=== PATIENT | male | born 1940 | race Caucasian/White ===

== ENCOUNTER 2016-07-30 04:36 | Emergency (ER) | payer OTHER ==
[~2016-07-30 04:36] MED LIST: CYCL5TAB PO; TRAM50 PO; Z.0.NO CURRENT MEDS
[2016-07-30] MEDS ORDERED: SODIUM CHLOR 0.9% 1000 ML INJ 1,000 ML IV SCH (04:50)
[2016-07-30] MEDS ORDERED: VITACAP7 PO (04:56)
[2016-07-30] MEDS ORDERED: [UNRECOGNIZED DRUG - CODE] (04:56)
--- NOTE | 2016-07-30 04:57 | PD ---
HPI Chief Complaint: Abdominal Pain Time Seen by Provider: 04:50 Travel History International Travel<30 days: No Contact w/Intl Traveler<30days: No Traveled to known affect area: No History of Present Illness HPI The patient is a 75-year-old male who presents to the emergency department via EMS for abdominal pain. The patient states he developed abdominal pain approximate 10 hours prior to arrival, just prior to eating dinner. The pain was located in epigastrium, just above the umbilicus, nonradiating, and sharp to crampy. The patient then ate dinner which exacerbated his pain. He does note nausea with an episode of vomiting, denies any diarrhea. The patient does have a history of previous left inguinal hernia , denies any previous abdominal surgeries. He denies any history pancreatitis, nephrolithiasis, or biliary colic. The patient does drink wine, approximately one glass per night. The patient denies any fever, chills, sweats, chest pain, or shortness of breath. The patient's primary physician is Dr. Johnson. The patient's last bowel movement was at 11 AM yesterday, however, since 11 AM he said no bowel movement or passing of flatus. PFSH Past Medical History Asthma: No COPD: No Diminished Hearing: No Endocrine: No Inguinal Hernia: Yes (Left) Respiratory: No Past Surgical History Other Surgery: Yes (Maximo knee arthroscopy, left inguinal hernia, Hemorrhoidectomy) Social History Alcohol Use: Yes (Occasional. 2 night ago last use.) Tobacco Use: No Substance Use: No Allergies-Medications (Allergen,Severity, Reaction): Coded Allergies: No Known Allergies (Verified , 07/30/16) Reported Meds & Prescriptions Reported Meds & Active Scripts Active Reported Uhljkcvb-Wrmjuppht-Tqhy 200-5-25 Mcg-Mg-Mg Tab B Complex (B-Complex Vitamins) 1 Cap 1 Cap PO DAILY Review of Systems Except as stated in HPI: all other systems reviewed are Neg General / Constitutional: No: Fever, Chills Cardiovascular: No: Chest Pain or Discomfort Respiratory: No: Shortness of Breath Gastrointestinal: Positive: Nausea, Vomiting, Abdominal Pain, No: Diarrhea Genitourinary: No: Dysuria Skin: No Rash Physical Exam Narrative GENERAL: Awake, alert, pleasant 75-year-old male who appears his stated age and is in no acute respiratory distress. SKIN: Focused skin assessment warm/dry. HEAD: Atraumatic. Normocephalic. EYES: Pupils equal and round. No scleral icterus. No injection or drainage. ENT: No nasal bleeding or discharge. Mucous membranes pink and moist. NECK: Trachea midline. No JVD. CARDIOVASCULAR: Regular rate and rhythm. No murmur appreciated. RESPIRATORY: No accessory muscle use. Clear to auscultation. Breath sounds equal bilaterally. GASTROINTESTINAL: Abdomen soft, tender palpation epigastrium. Negative Leon' s. Negative McBurney's. Well-healed thin transverse scar in the epigastrium. MUSCULOSKELETAL: No obvious deformities. No clubbing. No cyanosis. No edema. NEUROLOGICAL: Awake and alert. No obvious cranial nerve deficits. Motor grossly within normal limits. Normal speech. PSYCHIATRIC: Appropriate mood and affect; insight and judgment normal. Data Data Last Documented VS Vital Signs Date Time Temp Pulse Resp B/P Pulse Ox O2 Delivery O2 Flow Rate FiO2 07/30/16 05:09 98.3 109 20 114/70 96 Room Air Orders Complete Blood Count With Diff (07/30/16 04:50) Comprehensive Metabolic Panel (07/30/16 04:50) Lipase (07/30/16 04:50) Lactic Acid (07/30/16 04:50) Urinalysis - C+S If Indicated (07/30/16 04:50) Ct Abd/Pel W/O Iv Contrast (07/30/16 04:50) Iv Access Insert/Monitor (07/30/16 04:50) Ecg Monitoring (07/30/16 04:50) Oximetry (07/30/16 04:50) Morphine Inj (Morphine Inj) (07/30/16 05:00) Ondansetron Inj (Zofran Inj) (07/30/16 05:00) Sodium Chlor 0.9% 1000 Ml Inj (Ns 1000 M (07/30/16 04:50) Sodium Chloride 0.9% Flush (Ns Flush) (07/30/16 05:00) Electrocardiogram (07/30/16 04:50) Consult General Surgery (07/30/16 ) Ampicillin-Sulbactam Inj (Unasyn Inj) (07/30/16 05:45) Ns + Kcl 20 Meq Inj (Ns + Kcl 20 Meq Inj (07/30/16 05:45) (Hub Use Only)Inp Phy Cons/Ref (07/30/16 ) Labs Laboratory Tests Test 07/30/16 04:55 White Blood Count 14.0 TH/MM3 Red Blood Count 5.67 MIL/MM3 Hemoglobin 16.7 GM/DL Hematocrit 50.8 % Mean Corpuscular Volume 89.6 FL Mean Corpuscular Hemoglobin 29.4 PG Mean Corpuscular Hemoglobin 32.8 % Concent Red Cell Distribution Width 15.1 % Platelet Count 216 TH/MM3 Mean Platelet Volume 7.0 FL Neutrophils (%) (Auto) 90.6 % Lymphocytes (%) (Auto) 2.1 % Monocytes (%) (Auto) 4.7 % Eosinophils (%) (Auto) 0.1 % Basophils (%) (Auto) 2.5 % Neutrophils # (Auto) 12.6 TH/MM3 Lymphocytes # (Auto) 0.3 TH/MM3 Monocytes # (Auto) 0.7 TH/MM3 Eosinophils # (Auto) 0.0 TH/MM3 Basophils # (Auto) 0.4 TH/MM3 CBC Comment AUTO DIFF Differential Total Cells 100 Counted Neutrophils % (Manual) 88 % Band Neutrophils % 7 % Lymphocytes % 3 % Monocytes % 1 % Basophils % 1 % Neutrophils # (Manual) 13.3 TH/MM3 Differential Comment FINAL DIFF MANUAL Platelet Estimate NORMAL Platelet Morphology Comment NORMAL Red Cell Morphology Comment NORMAL Sodium Level 139 MEQ/L Potassium Level 4.0 MEQ/L Chloride Level 102 MEQ/L Carbon Dioxide Level 26.4 MEQ/L Anion Gap 11 MEQ/L Blood Urea Nitrogen 16 MG/DL Creatinine 1.30 MG/DL Estimat Glomerular Filtration 54 ML/MIN Rate Random Glucose 206 MG/DL Lactic Acid Level 3.1 mmol/L Calcium Level 10.0 MG/DL Total Bilirubin 1.2 MG/DL Aspartate Amino Transf 22 U/L (AST/SGOT) Alanine Aminotransferase 29 U/L (ALT/SGPT) Alkaline Phosphatase 59 U/L Total Protein 8.2 GM/DL Albumin 4.2 GM/DL Lipase 120 U/L [facility] Medical Decision Making Medical Screen Exam Complete: Yes Emergency Medical Condition: Yes Medical Record Reviewed: Yes Interpretation(s) EKG reveals sinus tachycardia with a heart rate of 106. Low QRS voltage in limb leads. No ischemic changes noted. Last Impressions Abdomen/Pelvis CT 07/30/16 0450 Signed Impressions: Service Date/Time: Saturday, July 30, 2016 04:55 - CONCLUSION: Distal small bowel obstruction Rayray Cali MD Laboratory Tests Test 07/30/16 04:55 White Blood Count 14.0 TH/MM3 Red Blood Count 5.67 MIL/MM3 Hemoglobin 16.7 GM/DL Hematocrit 50.8 % Mean Corpuscular Volume 89.6 FL Mean Corpuscular Hemoglobin 29.4 PG Mean Corpuscular Hemoglobin 32.8 % Concent Red Cell Distribution Width 15.1 % Platelet Count 216 TH/MM3 Mean Platelet Volume 7.0 FL Neutrophils (%) (Auto) 90.6 % Lymphocytes (%) (Auto) 2.1 % Monocytes (%) (Auto) 4.7 % Eosinophils (%) (Auto) 0.1 % Basophils (%) (Auto) 2.5 % Neutrophils # (Auto) 12.6 TH/MM3 Lymphocytes # (Auto) 0.3 TH/MM3 Monocytes # (Auto) 0.7 TH/MM3 Eosinophils # (Auto) 0.0 TH/MM3 Basophils # (Auto) 0.4 TH/MM3 CBC Comment AUTO DIFF Sodium Level 139 MEQ/L Potassium Level 4.0 MEQ/L Chloride Level 102 MEQ/L Carbon Dioxide Level 26.4 MEQ/L Anion Gap 11 MEQ/L Blood Urea Nitrogen 16 MG/DL Creatinine 1.30 MG/DL Estimat Glomerular Filtration 54 ML/MIN Rate Random Glucose 206 MG/DL Lactic Acid Level 3.1 mmol/L Calcium Level 10.0 MG/DL Total Bilirubin 1.2 MG/DL Aspartate Amino Transf 22 U/L (AST/SGOT) Alanine Aminotransferase 29 U/L (ALT/SGPT) Alkaline Phosphatase 59 U/L Total Protein 8.2 GM/DL Albumin 4.2 GM/DL Lipase 120 U/L Differential Diagnosis Differential diagnosis includes diverticulitis, pancreatitis, gastritis, peptic ulcer disease, atypical cholecystitis, choledocholithiasis, atypical appendicitis, AAA. Narrative Course IV was established, labs are drawn and sent, and the patient was placed on cardiac telemetry monitoring and continuous pulse oximetry monitoring. The patient was ordered morphine, Zofran, and IV fluids. CT of the abdomen and pelvis was ordered. The patient declined the morphine and Zofran. White count is mildly elevated at 14, lactic acid is elevated at 3.1, LFTs and lipase are unremarkable. CT of the abdomen and pelvis reveals distal small bowel obstruction with mild fluid in gases distention of small bowel and a twisting loop of small bowel in the right lower quadrant with appearance worrisome for cord of obstruction, potentially from adhesions. Therefore, the on-call general surgeon was paged. I discussed the patient Dr. Funez at 5:30 AM who requested patient be transferred to [facility] as he may need operative management and possible bowel resection if he does have a twisting loop of bowel. Therefore, the on-call medical service was paged for admission. I had a discussion with the patient at 5:40 AM in regards to his care and transfer to [facility]. The patient states he does not want to be transferred to [facility] and does not want to be admitted. I had a discussion with the patient regarding the possible complications of not being treated including dehydration, electrolyte abnormalities that could lead to arrhythmia, strangulated bowel leading to ischemia, and possibly . The patient states he understands these risks, however, he states repetitively that he is never had this problem before elected to go home and take herbs and some medicines to make him have a bowel movement. The patient is alert and oriented and able to make competent decisions, he appears to understand the severity of his illness, but refuses admission. The patient will sign out against chief medical technologist. I had another discussion with the patient at 6 AM, he still does not want to be admitted, he does understand the severity of his illness. I advised patient that if he returns to return immediately to [facility] on [employer] [address] [employer] speech. Procedures Procedure Narrative AMA: The risks of leaving against medical advice without further evaluation treatment were discussed with the patient. These risks include cardiac dysfunction, cardiac dysrhythmia, possible heart attack, possible stroke or . The patient indicated understanding of these risks and appeared to have the capacity to make this decision. Physician Communication Physician Communication I discussed the patient with Dr. Funez who requests patient be transferred [facility]. A call was placed to the on-call medical service for admission. Diagnosis Primary Impression: Small bowel obstruction Additional Instructions: Return to the emergency Department immediately at [facility] on [employer] and [employer] if you change your mind. Continue to monitor for signs of dehydration such as persistent nausea and vomiting, as well as fever and increasing pain. Disposition: 07 AGAINST MEDICAL ADVICE Condition: Stable Emre Kirk MD July 30, 2016 04:57
[2016-07-30] MEDS ORDERED: MORPHINE SULFATE 4 MG/ML INJ IV PUSH ONE (05:00)
[2016-07-30] MEDS ORDERED: ONDANSETRON HCL 4 MG/2 ML VIAL IVP ONE (05:00)
[2016-07-30] MEDS ORDERED: SODIUM CHLORIDE 0.9% FLUSH 10 ML FLUSH IV FLUSH PRN (05:00)
[2016-07-30 05:07] LABS: AUTOMATED NEUTROPHIL # 12.6 TH/MM3 (1.8-7.7); BASOPHIL # 0.4 TH/MM3 (0-0.2); BASOPHIL % 2.5 % (0.0-2.0); EOSINOPHIL % 0.1 % (0.0-4.0); HEMATOCRIT 50.8 % (39.0-51.0); LYMPH % 2.1 % (9.0-44.0); LYMPHOCYTE # 0.3 TH/MM3 (1.0-4.8); MEAN CELL VOLUME 89.6 FL (80.0-100.0); MEAN CORPUSCULAR HEMOGLOBIN 29.4 PG (27.0-34.0); MEAN CORPUSCULAR HGB CONC 32.8 % (32.0-36.0); MONO % 4.7 % (0.0-8.0); NEUT % 90.6 % (16.0-70.0); PLATELET COUNT 216 TH/MM3 (150-450); RED BLOOD COUNT 5.67 MIL/MM3 (4.50-5.90); RED CELL DISTRIBUTION WIDTH 15.1 % (11.6-17.2)
[2016-07-30 05:09] VITALS: BP 114/70; PULSE 109; RESP 20; TEMP 98.3; O2SAT 96
[2016-07-30 05:11] LABS: CHLORIDE 102 MEQ/L (98-107); SODIUM (NA) 139 MEQ/L (136-145)
[2016-07-30 05:14] LABS: ANION GAP 11 MEQ/L (5-15); BICARBONATE 26.4 MEQ/L (21.0-32.0); BLOOD UREA NITROGEN 16 MG/DL (7-18)
[2016-07-30 05:17] LABS: ALT (GPT) 29 U/L (12-78); AST (GOT) 22 U/L (15-37); GLOMERULAR FILTRATION RATE 54 ML/MIN (>89)
[2016-07-30 05:18] LABS: TOTAL BILIRUBIN ADULT 1.2 MG/DL (0.2-1.0)
[2016-07-30 05:19] LABS: HEMO FLAGS AUTO DIFF
[2016-07-30 05:20] LABS: ALKALINE PHOSPHATASE 59 U/L (45-117)
--- NOTE | 2016-07-30 05:24 | RADHPO ---
EXAM DATE/TIME: 07/30/2016 04:55 [facility] COMPARISON: No previous studies available for comparison. INDICATIONS : Abdominal pain. ORAL CONTRAST: No oral contrast ingested. RADIATION DOSE: 16.02 CTDIvol (mGy) MEDICAL HISTORY : Hernia, inguinal. SURGICAL HISTORY : Inguinal hernia repair. ENCOUNTER: Initial ACUITY: 1 day PAIN SCALE: 10/10 LOCATION: Umbilical TECHNIQUE: Volumetric scanning of the abdomen and pelvis was performed. Using automated exposure control and ad justment of the mA and/or kV according to patient size, radiation dose was kept as low as reasonably achievable to obtain optimal diagnostic quality images. FINDINGS: LOWER LUNGS: The visualized lower lungs are clear. LIVER: Homogeneous density without lesion. There is no dilation of the biliary tree. No calcified gallston es. SPLEEN: Minimal perisplenic fluid. PANCREAS: Within normal limits. KIDNEYS: Obstructing stones involving the right kidney, largest day 7 mm stone in the upper pole collecting sy stem. ADRENAL GLANDS: Within normal limits. VASCULAR: There is no aortic aneurysm. BOWEL/MESENTERY: There is mild fluid and gaseous distention of small bowel. There is a twisting loop of small bowel in the right lower quadrant with appearance worrisome for cord of obstruction is potentially from adhes ions. There is a small volume of interloop fluid in this region. There are a few tiny mesenteric lymp h nodes, however no discrete mass otherwise present. There is no evidence of loculated fluid or extra luminal gas. The colon is generally decompressed with distal diverticular involvement. ABDOMINAL WALL: Within normal limits. RETROPERITONEUM: There is no lymphadenopathy. BLADDER: No wall thickening or mass. REPRODUCTIVE: Prostate fiducials. No evidence of pelvic mass. INGUINAL: There is no lymphadenopathy or hernia. MUSCULOSKELETAL: Within normal limits for patient age. CONCLUSION: Distal small bowel obstruction Rayray Cali MD on July 30, 2016 at 5:15 Board Certified Radiologist. This report was verified electronically.
[2016-07-30] MEDS ORDERED: AMPICILLIN-SULBACTAM INJ 3 GM in SODIUM CHLORIDE 0.9% INJ 100 ML IV ONE (05:45)
[2016-07-30] MEDS: NS + KCL 20 MEQ INJ 1,000 ML IV SCH ×2 (05:45→06:13)
[2016-07-30 05:56] LABS: BANDS 7 % (0-6); BASOPHILS 1 % (0-2); NEUTROPHIL # MANUAL DIFF 13.3 TH/MM3 (1.8-7.7); POLYS (SEG NEUTROPHILS) 88 % (16-70); WBC DIFF SAMPLE 100
[2016-07-30 05:57] LABS: PLATELET ESTIMATE SMEAR NORMAL (NORMAL); PLATELET MORPHOLOGY NORMAL (NORMAL); SCAN/DIFF FINAL DIFF MANUAL
[2016-07-30 06:09] LABS: BLOOD, URINE NEG (NEG); GLUCOSE,URINE NEG (NEG); KETONE, URINE 40 mg/dL (NEG); NITRITE,URINE NEG (NEG); PH, URINE 5.5 (5.0-8.5)
[2016-07-30 06:15] LABS: URINE COLOR YELLOW (YELLW/STRAW)
[2016-07-30 06:17] LABS: COMMENT (UR) CULT NOT INDICATED; CULTURE IF INDICATED CULT NOT INDICATED; HYALINE CAST, URINE 0-2 /lpf (RARE); MUCUS URINE MOD /lpf (OCC); SQUAMOUS EPITHELIAL CELL URINE 0-5 /hpf (0-5); WBC, URINE 0-2 /hpf (0-5)
--- NOTE | 2016-07-30 10:55 | EKG ---
Date Performed: 07/30/2016 Time Performed: 04:52:40 PTAGE: 75 years EKG: Sinus tachycardia Leftward axis Borderline ECG PREVIOUS TRACING : 06/21/2004 13.22 No significant change from previous tracing noted. DOCTOR: Adriel Sy Interpretating Date/Time 07/30/2016 10:53:26
== END 2016-07-30 06:26 | disposition left against medical advice (07) ==
LOC: PHED 04:36
DX: K56.60 Unspecified intestinal obstruction (principal); R00.0 Tachycardia, unspecified; R11.2 Nausea with vomiting, unspecified; Z79.899 Other long term (current) drug therapy
CPT/HCPCS: 74176; 80053; 81001; 83605; 83690; 85007; 85027; 93005; 99285; J7030

== ENCOUNTER 2016-07-30 14:03 | Emergency (ER) | payer OTHER ==
[~2016-07-30] VITALS: Ht 177.8 cm; Wt 87.0 kg
[~2016-07-30 14:03] MED LIST changes: +VITACAP7 PO; +[UNRECOGNIZED DRUG - CODE]
[2016-07-30 14:04] VITALS: BP 124/75; PULSE 78; RESP 15; TEMP 98.2; O2SAT 98
--- NOTE | 2016-07-30 14:21 | PD ---
Physical Exam Date Seen by Provider: July 30, 2016 Time Seen by Provider: 14:19 Narrative 75 yo male here for evaluation of possible bowel obstruction. He was seen today by Dr Kirk at [facility] and offered admission but he refused. pain still severe. So he came here to get revaluated. Pain is 8/10. No diarrhea Vitals sign stable. Patient awaiting bed placement. Data Data Last Documented VS Vital Signs Date Time Temp Pulse Resp B/P Pulse Ox O2 Delivery O2 Flow Rate FiO2 07/30/16 14:04 98.2 78 15 124/75 98 MDM Medical Record Reviewed: Yes Supervised Visit with SARAH: No Christopher Barrera July 30, 2016 14:21
[2016-07-30 15:31] LABS: AUTOMATED NEUTROPHIL # 7.8 TH/MM3 (1.8-7.7); BASOPHIL % 0.2 % (0.0-2.0); EOSINOPHIL % 0.2 % (0.0-4.0); HEMATOCRIT 44.5 % (39.0-51.0); HEMO FLAGS DIFF FINAL; LYMPH % 9.1 % (9.0-44.0); LYMPHOCYTE # 0.9 TH/MM3 (1.0-4.8); MEAN CELL VOLUME 89.2 FL (80.0-100.0); MEAN CORPUSCULAR HEMOGLOBIN 30.2 PG (27.0-34.0); MEAN CORPUSCULAR HGB CONC 33.8 % (32.0-36.0); MONO % 9.7 % (0.0-8.0); NEUT % 80.8 % (16.0-70.0); PLATELET COUNT 200 TH/MM3 (150-450); RED BLOOD COUNT 4.99 MIL/MM3 (4.50-5.90); WHITE BLOOD COUNT 9.6 TH/MM3 (4.0-11.0)
[2016-07-30 15:49] LABS: ALT (GPT) 25 U/L (12-78); ANION GAP 7 MEQ/L (5-15); AST (GOT) 23 U/L (15-37); BICARBONATE 29.7 MEQ/L (21.0-32.0); BLOOD UREA NITROGEN 15 MG/DL (7-18); CHLORIDE 104 MEQ/L (98-107); GLOMERULAR FILTRATION RATE 59 ML/MIN (>89); POTASSIUM 4.2 MEQ/L (3.5-5.1); SODIUM (NA) 141 MEQ/L (136-145)
[2016-07-30 15:52] LABS: ALKALINE PHOSPHATASE 50 U/L (45-117); TOTAL BILIRUBIN ADULT 1.3 MG/DL (0.2-1.0)
[2016-07-30] MEDS ORDERED: DIATRIZOATE MEGLUM/DIATRIZOATE SOD 9 ML CUP ONE (15:56)
[2016-07-30 17:00] VITALS: BP 118/86; PULSE 80; RESP 16; O2SAT 98
--- NOTE | 2016-07-30 17:20 | PD ---
HPI Chief Complaint: GI Complaint Time Seen by Provider: 14:43 Travel History International Travel<30 days: No Contact w/Intl Traveler<30days: No Traveled to known affect area: No History of Present Illness HPI 75yo M presents to the ED because he left AMA this morning. Pt had epigastric abdominal pain yesterday afternoon and was evaluated by [place] [facility] this morning and found to have small bowl obstruction on CTa/p without contrast. Pt did not want to come to [facility] and left AMA. Pt states he felt better after and had a small bowel movement at 10am today. Still no flatus. Has not vomited since he induced vomiting at 3am. Denies any fever, chest pain, sob. PSH include inguinal hernia repair. PFSH Past Medical History Asthma: No Cancer: Yes (hx of prostate) COPD: No Diminished Hearing: No Endocrine: No Inguinal Hernia: Yes (Left) Kidney Stones: Yes (current stone) Respiratory: No Radiation Therapy: Yes (hx of) Influenza Vaccination: Yes Dilation and Curettage (D&C): Yes (right and left knees) Past Surgical History Abdominal Surgery: Yes (inguinal hernia) Joint Replacement: No (bilat knee d & c) Other Surgery: Yes (Maximo knee arthroscopy, left inguinal hernia, Hemorrhoidectomy) Social History Alcohol Use: No (occ) Tobacco Use: No (quit 2 cigar daily 10 years ago) Substance Use: No Allergies-Medications (Allergen,Severity, Reaction): Coded Allergies: No Known Allergies (Verified , 07/30/16) Reported Meds & Prescriptions Reported Meds & Active Scripts Active Reported Oiqqeeeh-Jypzldtbv-Wucm 200-5-25 Mcg-Mg-Mg Tab B Complex (B-Complex Vitamins) 1 Cap 1 Cap PO DAILY Review of Systems Except as stated in HPI: all other systems reviewed are Neg Physical Exam Narrative GENERAL: 75yo M not in distress. SKIN: Focused skin assessment warm/dry. HEAD: Atraumatic. Normocephalic. EYES: Pupils equal and round. No scleral icterus. No injection or drainage. ENT: No nasal bleeding or discharge. Mucous membranes pink and moist. NECK: Trachea midline. No JVD. CARDIOVASCULAR: Regular rate and rhythm. No murmur appreciated. RESPIRATORY: No accessory muscle use. Clear to auscultation. Breath sounds equal bilaterally. GASTROINTESTINAL: Abdomen soft, non-tender, nondistended. No rebound tenderness or guarding. MUSCULOSKELETAL: No obvious deformities. No clubbing. No cyanosis. No edema. NEUROLOGICAL: Awake and alert. No obvious cranial nerve deficits. Motor grossly within normal limits. Normal speech. PSYCHIATRIC: Appropriate mood and affect; insight and judgment normal. Data Data Last Documented VS Vital Signs Date Time Temp Pulse Resp B/P Pulse Ox O2 Delivery O2 Flow Rate FiO2 07/30/16 17:00 80 16 118/86 98 Room Air 07/30/16 14:04 98.2 Orders Complete Blood Count With Diff (07/30/16 15:13) Comprehensive Metabolic Panel (07/30/16 15:13) Lactic Acid Sepsis Protocol (07/30/16 15:13) Ct Abd/Pel W Iv Contrast(Rout) (07/30/16 ) Oral Contrast - Adult (07/30/16 15:49) Diatrizoate Liq ( Gastroshruti Liq) (07/30/16 15:56) Labs Laboratory Tests Test 07/30/16 15:20 White Blood Count 9.6 TH/MM3 Red Blood Count 4.99 MIL/MM3 Hemoglobin 15.0 GM/DL Hematocrit 44.5 % Mean Corpuscular Volume 89.2 FL Mean Corpuscular Hemoglobin 30.2 PG Mean Corpuscular Hemoglobin 33.8 % Concent Red Cell Distribution Width 15.0 % Platelet Count 200 TH/MM3 Mean Platelet Volume 7.5 FL Neutrophils (%) (Auto) 80.8 % Lymphocytes (%) (Auto) 9.1 % Monocytes (%) (Auto) 9.7 % Eosinophils (%) (Auto) 0.2 % Basophils (%) (Auto) 0.2 % Neutrophils # (Auto) 7.8 TH/MM3 Lymphocytes # (Auto) 0.9 TH/MM3 Monocytes # (Auto) 0.9 TH/MM3 Eosinophils # (Auto) 0.0 TH/MM3 Basophils # (Auto) 0.0 TH/MM3 CBC Comment DIFF FINAL Differential Comment Sodium Level 141 MEQ/L Potassium Level 4.2 MEQ/L Chloride Level 104 MEQ/L Carbon Dioxide Level 29.7 MEQ/L Anion Gap 7 MEQ/L Blood Urea Nitrogen 15 MG/DL Creatinine 1.20 MG/DL Estimat Glomerular Filtration 59 ML/MIN Rate Random Glucose 97 MG/DL Lactic Acid Level 1.6 mmol/L Calcium Level 9.5 MG/DL Total Bilirubin 1.3 MG/DL Aspartate Amino Transf 23 U/L (AST/SGOT) Alanine Aminotransferase 25 U/L (ALT/SGPT) Alkaline Phosphatase 50 U/L Total Protein 7.4 GM/DL Albumin 3.7 GM/DL MDM Medical Decision Making Medical Screen Exam Complete: Yes Emergency Medical Condition: Yes Interpretation(s) Last Impressions Abdomen/Pelvis CT 07/30/16 0000 Signed Impressions: Service Date/Time: Saturday, July 30, 2016 17:22 - CONCLUSION: 1. The previously noted small bowel obstruction has improved and most likely resolved on the current exam. There is less distention of the small bowel and there is contrast noted in the small and large bowel. 2. There is some nonspecific edema and/or inflammatory changes adjacent to the terminal ileum. 3. There is scattered diverticulosis of the sigmoid and descending colon. 4. No change in the nonobstructing right kidney stone. Ruddy Fregoso MD Laboratory Tests Test 07/30/16 15:20 White Blood Count 9.6 TH/MM3 (4.0-11.0) Red Blood Count 4.99 MIL/MM3 (4.50-5.90) Hemoglobin 15.0 GM/DL (13.0-17.0) Hematocrit 44.5 % (39.0-51.0) Mean Corpuscular Volume 89.2 FL (80.0-100.0) Mean Corpuscular Hemoglobin 30.2 PG (27.0-34.0) Mean Corpuscular Hemoglobin 33.8 % Concent (32.0-36.0) Red Cell Distribution Width 15.0 % (11.6-17.2) Platelet Count 200 TH/MM3 (150-450) Mean Platelet Volume 7.5 FL (7.0-11.0) Neutrophils (%) (Auto) 80.8 % (16.0-70.0) Lymphocytes (%) (Auto) 9.1 % (9.0-44.0) Monocytes (%) (Auto) 9.7 % (0.0-8.0) Eosinophils (%) (Auto) 0.2 % (0.0-4.0) Basophils (%) (Auto) 0.2 % (0.0-2.0) Neutrophils # (Auto) 7.8 TH/MM3 (1.8-7.7) Lymphocytes # (Auto) 0.9 TH/MM3 (1.0-4.8) Monocytes # (Auto) 0.9 TH/MM3 (0-0.9) Eosinophils # (Auto) 0.0 TH/MM3 (0-0.4) Basophils # (Auto) 0.0 TH/MM3 (0-0.2) CBC Comment DIFF FINAL Differential Comment Sodium Level 141 MEQ/L (136-145) Potassium Level 4.2 MEQ/L (3.5-5.1) Chloride Level 104 MEQ/L (98-107) Carbon Dioxide Level 29.7 MEQ/L (21.0-32.0) Anion Gap 7 MEQ/L (5-15) Blood Urea Nitrogen 15 MG/DL (7-18) Creatinine 1.20 MG/DL (0.60-1.30) Estimat Glomerular Filtration 59 ML/MIN (>89) Rate Random Glucose 97 MG/DL (74-106) Lactic Acid Level 1.6 mmol/L (0.4-2.0) Calcium Level 9.5 MG/DL (8.5-10.1) Total Bilirubin 1.3 MG/DL (0.2-1.0) Aspartate Amino Transf 23 U/L (15-37) (AST/SGOT) Alanine Aminotransferase 25 U/L (12-78) (ALT/SGPT) Alkaline Phosphatase 50 U/L (45-117) Total Protein 7.4 GM/DL (6.4-8.2) Albumin 3.7 GM/DL (3.4-5.0) Differential Diagnosis Partial obstruction vs. resolved obstruction vs. incarcerated hernia Narrative Course 75yo M who is now well appearing here because he signed out against medical advice after CT showed small bowel obstruction. I discussed case with promotions assistant sales marketing general surgeon Dr. Stark who recommend repeating labs and repeating CT but with oral and IV contrast. Labs reviewed, no leukocytosis. Lactic acid improved to 1.6. Total bilirubin mildly elevated at 1.3. Repeat CTa/p showed previous noted small bowel obstruction has improved and most likely resolved on the current exam. I discussed with Dr. Stark who has evaluated the patient in the ED and recommends outpatient follow up with him. Pt is well appearing and has no abdominal pain or vomiting here. Return precautions given. VS stable. Diagnosis Primary Impression: Abdominal pain Qualified Code: R10.13 - Epigastric pain Referrals: Bryan Stark MD call for appointment Patient Instructions: General Instructions Departure Forms: Tests/Procedures Additional Instructions: Please follow up with Dr. Stark as outpatient. Return to the ED if you have abdominal pain or vomiting. Med/Other Pt SpecificInfo: No Change to Meds Disposition: 01 DISCHARGE HOME Condition: Stable Sarah Mcfadden DO July 30, 2016 17:20
[2016-07-30] MEDS ORDERED: IOHEXOL 350 MG/ML 10 ML VIAL (for RAD DIAG) IV ONE (17:22)
--- NOTE | 2016-07-30 17:52 | RADRPT ---
EXAM DATE/TIME: 07/30/2016 17:22 [facility] COMPARISON: CT ABDOMEN & PELVIS W/O CONTRAST, July 30, 2016, 4:55. INDICATIONS : Possible bowel obstruction. IV CONTRAST: 95 cc Omnipaque 350 (iohexol) IV ORAL CONTRAST: Prescribed oral contrast ingested. RADIATION DOSE: 9.96 CTDIvol (mGy) MEDICAL HISTORY : Renal calculi. Carcinoma, prostate. Hernia, inguinal. SURGICAL HISTORY : Hemorrhoidectomy. Inguinal hernia repair. ENCOUNTER: Initial ACUITY: 1 day PAIN SCALE: 8/10 LOCATION: Bilateral abdomen TECHNIQUE: Volumetric scanning of the abdomen and pelvis was performed. Using automated exposure control and ad justment of the mA and/or kV according to patient size, radiation dose was kept as low as reasonably achievable to obtain optimal diagnostic quality images. FINDINGS: A followup CT scan of the abdomen is been performed. This is compared to the older exam. No change in the 7 mm nonobstructing right kidney stone. There is no hydronephrosis. The previously noted small b owel obstruction has improved on today's exam. The there is less distention of the small bowel loops. There is contrast throughout the small bowel and colon. There is some scattered diverticulosis of th e sigmoid colon without inflammatory changes. There does appear to be some nonspecific soft tissue ve rsus inflammatory changes adjacent to the terminal ileum. No free fluid or free air is seen. CONCLUSION: 1. The previously noted small bowel obstruction has improved and most likely resolved on the current exam. There is less distention of the small bowel and there is contrast noted in the small and large bowel. 2. There is some nonspecific edema and/or inflammatory changes adjacent to the terminal ileum. 3. There is scattered diverticulosis of the sigmoid and descending colon. 4. No change in the nonobstructing right kidney stone. Ruddy Fregoso MD on July 30, 2016 at 17:43 Board Certified Radiologist. This report was verified electronically.
--- NOTE | 2016-07-31 14:23 | MB ---
cc: NATALIE PONCE MD DATE OF CONSULTATION: 07/30/[address] Sarah Mcfadden. REASON FOR CONSULTATION Bowel obstruction. HISTORY OF PRESENT ILLNESS This is a 75-year-old male with a past surgical history of open inguinal hernia repair, who developed periumbilical abdominal pain last night around 04:00 p.m. The pain worsened and he came to the [place] [facility] early this morning. He was evaluated in [place] and noted to have leukocytosis of 14,000 and a lactic acid of 3.1. He had a CT scan without oral or IV contrast, which showed a twisting of a loop of small bowel on the right lower quadrant worrisome for obstruction. The patient was recommended to proceed to the [facility] for surgical evaluation and possible operative management. The patient opted to leave against medical advice. He then presented to the emergency department at the [facility] today for further evaluation. He actually does feel a little bit better. He admits to nausea and one episode of self-induced vomiting last night. He felt much more bloated earlier at the emergency department than during the second presentation. He states that he has not been having flatus. He was again evaluated at the [facility] emergency department and his labs have improved. He had a normal white blood count as well as a normal lactic acid. Dr. Sarah Mcfadden discussed the case with me and I recommended repeating a CT scan this time with oral and IV contrast. The CT scan showed improvement and possible resolution of the small bowel obstruction. There was some nonspecific edema adjacent to the terminal ileum. PAST MEDICAL HISTORY Prostate cancer status post radiation seeding. Kidney stones. PAST SURGICAL HISTORY Left inguinal hernia repair. Bilateral knee arthroscopy. Hemorrhoidectomy. MEDICATION Home medications: No prescription meds. FAMILY HISTORY Noncontributory. SOCIAL HISTORY No alcohol, tobacco or drug use. ALLERGIES No known allergies. REVIEW OF SYSTEMS 10-point review of systems negative, except as mentioned in HPI. PHYSICAL EXAMINATION GENERAL: Well-developed, well-nourished male, cooperative and not in distress. VITAL SIGNS: Temperature 98.2, heart rate 78, respirations 15, blood pressure 124/75. HEAD: Normocephalic, atraumatic. EYES: Pupils equal, round, reactive to light bilaterally. LUNGS: Clear to auscultation. No wheezing or rhonchi. CARDIOVASCULAR: Regular rate and rhythm. ABDOMEN: Mild distension, soft and minimal tenderness in the right lower abdomen. No rebound or guarding. EXTREMITIES: No cyanosis or edema. SKIN: Warm, dry, nonjaundiced. IMPRESSION AND PLAN A 75-year-old male with a nearly resolved inflammatory or obstructive process in the right lower abdomen. Clinically he appears quite well and the repeat CT scan is significantly improved. I discussed the case with Dr. Cleveland and recommend that from my standpoint he is safe for discharge. Certainly he can follow up with me as an outpatient if he has any recurrence of symptoms. MD KIMMIE Day/DIRK /1:11 PM /2:04 PM
== END 2016-07-30 19:54 | disposition home or self-care (01) ==
LOC: NEPE 14:03
DX: R10.13 Epigastric pain (principal); K57.30 Diverticulosis of large intestine without perforation or abscess without bleeding; N20.0 Calculus of kidney; Z87.891 Personal history of nicotine dependence
CPT/HCPCS: 74176; 74177; 80053; 81001; 83605; 83690; 85025; 85027; 93005; 99285; J7030; Q9963; Q9967; 85007

== ENCOUNTER 2016-09-28 06:13 | Inpatient (IN) | payer OTHER, MEDICARE ==
[~2016-09-28] VITALS: Ht 177.8 cm; Wt 87.0 kg
[2016-09-28] VITALS (9 sets, daily range): BP systolic 109–174; BP diastolic 67–96; PULSE 70–101; RESP 18–20; TEMP 97.8–99.3; O2SAT 94–99
[~2016-09-28 06:13] MED LIST changes: -CYCL5TAB PO; -TRAM50 PO; -Z.0.NO CURRENT MEDS
[2016-09-28] MEDS ORDERED: SODIUM CHLORIDE 0.9% FLUSH 10 ML FLUSH IV FLUSH PRN (06:30)
[2016-09-28] MEDS ORDERED: ONDANSETRON HCL 4 MG/2 ML VIAL IVP ONE (06:30)
[2016-09-28] MEDS ORDERED: SODIUM CHLOR 0.9% 1000 ML INJ 1,000 ML IV SCH (06:30)
[2016-09-28] MEDS ORDERED: MORPHINE SULFATE 4 MG/ML INJ IV PUSH ONE ×3 (06:30→10:30)
--- NOTE | 2016-09-28 06:39 | PD ---
HPI Chief Complaint: Abdominal Pain Time Seen by Provider: 06:23 Travel History International Travel<30 days: No Contact w/Intl Traveler<30days: No Traveled to known affect area: No History of Present Illness HPI The patient is a 75-year-old male who complains of periumbilical abdominal pain and distention for the last 14 hours. He has had nausea without vomiting. He does have a history of small bowel obstruction that spontaneously relieved. He has never had abdominal surgery. He denies any diarrhea but states he has been constipated for about 8-12 hours. He is followed by Dr. Covarrubias at the [facility] and states a colonoscopy is been scheduled for an later on in October. He denies any fever. FOR[facility]LY [facility] Past Medical History Asthma: No Cancer: Yes (hx of prostate) COPD: No Diminished Hearing: No Endocrine: No Inguinal Hernia: Yes (Left) Kidney Stones: Yes Medical other: Yes (STRANGULATED BOWEL JULY 2016) Respiratory: No Radiation Therapy: Yes (hx of) Tetanus Vaccination: Unknown Influenza Vaccination: Yes Dilation and Curettage (D&C): Yes (right and left knees) Past Surgical History Abdominal Surgery: Yes (inguinal hernia) Joint Replacement: No (bilat knee d & c) Other Surgery: Yes (Maximo knee arthroscopy, left inguinal hernia, Hemorrhoidectomy) Social History Alcohol Use: Yes (WINE OCC) Tobacco Use: No (quit 2 cigar daily 10 years ago) Substance Use: No (DENIES) Allergies-Medications (Allergen,Severity, Reaction): Coded Allergies: No Known Allergies (Verified , 09/28/16) Reported Meds & Prescriptions Reported Meds & Active Scripts Active Reported Oouylhqh-Kbmhtpolq-Yxlu 200-5-25 Mcg-Mg-Mg Tab B Complex (B-Complex Vitamins) 1 Cap 1 Cap PO DAILY Review of Systems Except as stated in HPI: all other systems reviewed are Neg Physical Exam Narrative GENERAL: The patient is alert, oriented 3 in moderate apparent distress with his abdominal discomfort. His vital signs show blood pressure 174/96 but are otherwise normal. SKIN: Focused skin assessment warm/dry. HEAD: Atraumatic. Normocephalic. EYES: Pupils equal and round. No scleral icterus. No injection or drainage. ENT: No nasal bleeding or discharge. Mucous membranes pink and moist. NECK: Trachea midline. No JVD. CARDIOVASCULAR: Regular rate and rhythm. No murmur appreciated. RESPIRATORY: No accessory muscle use. Clear to auscultation. Breath sounds equal bilaterally. GASTROINTESTINAL: Abdomen soft, with tenderness to direct palpation around the periumbilical area, nondistended. Hepatic and splenic margins not palpable. No guarding or rebound is present. MUSCULOSKELETAL: No obvious deformities. No clubbing. No cyanosis. No edema. NEUROLOGICAL: Awake and alert. No obvious cranial nerve deficits. Motor grossly within normal limits. Normal speech. PSYCHIATRIC: Appropriate mood and affect; insight and judgment normal. Data Data Last Documented VS Vital Signs Date Time Temp Pulse Resp B/P Pulse Ox O2 Delivery O2 Flow Rate FiO2 09/28/16 06:47 97 Room Air 09/28/16 06:25 18 09/28/16 06:20 97.8 80 174/96 Orders Complete Blood Count With Diff (09/28/16 06:30) Comprehensive Metabolic Panel (09/28/16 06:30) Urinalysis - C+S If Indicated (09/28/16 06:30) Iv Access Insert/Monitor (09/28/16 06:30) Oxygen Administration (09/28/16 06:30) Oximetry (09/28/16 06:30) Lipase (09/28/16 06:30) Ct Abd/Pel W Iv Contrast(Rout) (09/28/16 06:30) Ecg Monitoring (09/28/16 06:30) Morphine Inj (Morphine Inj) (09/28/16 06:30) Ondansetron Inj (Zofran Inj) (09/28/16 06:30) Sodium Chlor 0.9% 1000 Ml Inj (Ns 1000 M (09/28/16 06:30) Sodium Chloride 0.9% Flush (Ns Flush) (09/28/16 06:30) Ng Gastric Tube Insert/Monitor (09/28/16 06:35) Oral Contrast - Adult (09/28/16 06:41) Labs Laboratory Tests Test 09/28/16 06:30 White Blood Count 8.7 TH/MM3 Red Blood Count 5.16 MIL/MM3 Hemoglobin 14.8 GM/DL Hematocrit 46.3 % Mean Corpuscular Volume 89.7 FL Mean Corpuscular Hemoglobin 28.7 PG Mean Corpuscular Hemoglobin 31.9 % Concent Red Cell Distribution Width 15.4 % Platelet Count 232 TH/MM3 Mean Platelet Volume 6.8 FL Neutrophils (%) (Auto) 83.9 % Lymphocytes (%) (Auto) 8.8 % Monocytes (%) (Auto) 5.9 % Eosinophils (%) (Auto) 0.9 % Basophils (%) (Auto) 0.5 % Neutrophils # (Auto) 7.3 TH/MM3 Lymphocytes # (Auto) 0.8 TH/MM3 Monocytes # (Auto) 0.5 TH/MM3 Eosinophils # (Auto) 0.1 TH/MM3 Basophils # (Auto) 0.0 TH/MM3 CBC Comment DIFF FINAL Differential Comment MDM Medical Decision Making Medical Screen Exam Complete: Yes Emergency Medical Condition: Yes Medical Record Reviewed: Yes Differential Diagnosis Small bowel obstruction, ileus, electrolyte disorder, constipation Narrative Course It is now 0650 and the patient is transferred to Dr. Emre Kirk. Terry Corbett MD Sep 28, 2016 06:39
[2016-09-28 06:48] LABS: AUTOMATED NEUTROPHIL # 7.3 TH/MM3 (1.8-7.7); BASOPHIL % 0.5 % (0.0-2.0); EOSINOPHIL # 0.1 TH/MM3 (0-0.4); EOSINOPHIL % 0.9 % (0.0-4.0); HEMATOCRIT 46.3 % (39.0-51.0); HEMO FLAGS DIFF FINAL; LYMPH % 8.8 % (9.0-44.0); LYMPHOCYTE # 0.8 TH/MM3 (1.0-4.8); MEAN CELL VOLUME 89.7 FL (80.0-100.0); MEAN CORPUSCULAR HEMOGLOBIN 28.7 PG (27.0-34.0); MEAN CORPUSCULAR HGB CONC 31.9 % (32.0-36.0); MONO % 5.9 % (0.0-8.0); NEUT % 83.9 % (16.0-70.0); PLATELET COUNT 232 TH/MM3 (150-450); RED BLOOD COUNT 5.16 MIL/MM3 (4.50-5.90); RED CELL DISTRIBUTION WIDTH 15.4 % (11.6-17.2); WHITE BLOOD COUNT 8.7 TH/MM3 (4.0-11.0)
[2016-09-28 06:53] LABS: BLOOD, URINE NEG (NEG); GLUCOSE,URINE NEG (NEG); KETONE, URINE NEG (NEG); NITRITE,URINE NEG (NEG); PH, URINE 5.5 (5.0-8.5)
[2016-09-28 06:54] LABS: CHLORIDE 105 MEQ/L (98-107); SODIUM (NA) 139 MEQ/L (136-145)
[2016-09-28 06:55] LABS: METHOD OF COLLECTION CLEAN CATCH
[2016-09-28 06:56] LABS: COMMENT (UR) CULT NOT INDICATED; CULTURE IF INDICATED CULT NOT INDICATED; SQUAMOUS EPITHELIAL CELL URINE 0-5 /hpf (0-5); URINE COLOR YELLOW (YELLW/STRAW); WBC, URINE 0-2 /hpf (0-5)
[2016-09-28 06:58] LABS: ANION GAP 8 MEQ/L (5-15); BICARBONATE 26.5 MEQ/L (21.0-32.0); BLOOD UREA NITROGEN 12 MG/DL (7-18)
[2016-09-28] MEDS ORDERED: DIATRIZOATE MEGLUM/DIATRIZOATE SOD 9 ML CUP ONE (07:00)
[2016-09-28 07:01] LABS: ALT (GPT) 25 U/L (12-78); AST (GOT) 19 U/L (15-37); GLOMERULAR FILTRATION RATE 65 ML/MIN (>89)
[2016-09-28 07:03] LABS: TOTAL BILIRUBIN ADULT 0.8 MG/DL (0.2-1.0)
[2016-09-28 07:04] LABS: ALKALINE PHOSPHATASE 59 U/L (45-117)
--- NOTE | 2016-09-28 07:04 | PD ---
Physical Exam Date Seen by Provider: Sep 28, 2016 Time Seen by Provider: 07:02 Narrative The patient is a 75-year-old male who was initially evaluated by the previous physician, Dr. Corbett. Please refer to the initial history, physical , diagnostic evaluation, and treatment modality plan. The patient was signed out at [address] of the abdomen and pelvis pending for possible small bowel obstruction. Data Data Last Documented VS Vital Signs Date Time Temp Pulse Resp B/P Pulse Ox O2 Delivery O2 Flow Rate FiO2 09/28/16 09:03 98.0 90 18 166/87 97 Room Air Orders Complete Blood Count With Diff (09/28/16 06:30) Comprehensive Metabolic Panel (09/28/16 06:30) Urinalysis - C+S If Indicated (09/28/16 06:30) Iv Access Insert/Monitor (09/28/16 06:30) Oxygen Administration (09/28/16 06:30) Oximetry (09/28/16 06:30) Lipase (09/28/16 06:30) Ct Abd/Pel W Iv Contrast(Rout) (09/28/16 06:30) Ecg Monitoring (09/28/16 06:30) Morphine Inj (Morphine Inj) (09/28/16 06:30) Ondansetron Inj (Zofran Inj) (09/28/16 06:30) Sodium Chlor 0.9% 1000 Ml Inj (Ns 1000 M (09/28/16 06:30) Sodium Chloride 0.9% Flush (Ns Flush) (09/28/16 06:30) Ng Gastric Tube Insert/Monitor (09/28/16 06:35) Oral Contrast - Adult (09/28/16 06:41) Diatrizoate Liq ( Gastroview Liq) (09/28/16 07:00) Iohexol 350 Inj (Omnipaque 350 Inj) (09/28/16 07:57) Morphine Inj (Morphine Inj) (09/28/16 09:00) Admit Order (Ed Use Only) (09/28/16 09:03) Labs Laboratory Tests Test 09/28/16 09/28/16 06:20 06:30 Urine Collection Type CLEAN CATCH Urine Color YELLOW Urine Turbidity CLEAR Urine pH 5.5 Urine Specific Beaver 1.022 Urine Protein TRACE mg/dL Urine Glucose (UA) NEG mg/dL Urine Ketones NEG mg/dL Urine Occult Blood NEG Urine Nitrite NEG Urine Bilirubin NEG Urine Leukocyte Esterase NEG Urine RBC 4-9 /hpf Urine WBC 0-2 /hpf Urine Squamous Epithelial 0-5 /hpf Cells Microscopic Urinalysis Comment CULT NOT INDICATED Urine Collection Time 06:20 White Blood Count 8.7 TH/MM3 Red Blood Count 5.16 MIL/MM3 Hemoglobin 14.8 GM/DL Hematocrit 46.3 % Mean Corpuscular Volume 89.7 FL Mean Corpuscular Hemoglobin 28.7 PG Mean Corpuscular Hemoglobin 31.9 % Concent Red Cell Distribution Width 15.4 % Platelet Count 232 TH/MM3 Mean Platelet Volume 6.8 FL Neutrophils (%) (Auto) 83.9 % Lymphocytes (%) (Auto) 8.8 % Monocytes (%) (Auto) 5.9 % Eosinophils (%) (Auto) 0.9 % Basophils (%) (Auto) 0.5 % Neutrophils # (Auto) 7.3 TH/MM3 Lymphocytes # (Auto) 0.8 TH/MM3 Monocytes # (Auto) 0.5 TH/MM3 Eosinophils # (Auto) 0.1 TH/MM3 Basophils # (Auto) 0.0 TH/MM3 CBC Comment DIFF FINAL Differential Comment Sodium Level 139 MEQ/L Potassium Level 4.0 MEQ/L Chloride Level 105 MEQ/L Carbon Dioxide Level 26.5 MEQ/L Anion Gap 8 MEQ/L Blood Urea Nitrogen 12 MG/DL Creatinine 1.10 MG/DL Estimat Glomerular Filtration 65 ML/MIN Rate Random Glucose 142 MG/DL Calcium Level 9.0 MG/DL Total Bilirubin 0.8 MG/DL Aspartate Amino Transf 19 U/L (AST/SGOT) Alanine Aminotransferase 25 U/L (ALT/SGPT) Alkaline Phosphatase 59 U/L Total Protein 7.4 GM/DL Albumin 3.8 GM/DL Lipase 190 U/L [facility] Medical Record Reviewed: Yes Supervised Visit with SARAH: No Interpretation(s) Laboratory Tests Test 09/28/16 09/28/16 06:20 06:30 Urine Collection Type CLEAN CATCH Urine Color YELLOW Urine Turbidity CLEAR Urine pH 5.5 Urine Specific [place] 1.022 Urine Protein TRACE mg/dL Urine Glucose (UA) NEG mg/dL Urine Ketones NEG mg/dL Urine Occult Blood NEG Urine Nitrite NEG Urine Bilirubin NEG Urine Leukocyte Esterase NEG Urine RBC 4-9 /hpf Urine WBC 0-2 /hpf Urine Squamous Epithelial 0-5 /hpf Cells Microscopic Urinalysis Comment CULT NOT INDICATED Urine Collection Time 06:20 White Blood Count 8.7 TH/MM3 Red Blood Count 5.16 MIL/MM3 Hemoglobin 14.8 GM/DL Hematocrit 46.3 % Mean Corpuscular Volume 89.7 FL Mean Corpuscular Hemoglobin 28.7 PG Mean Corpuscular Hemoglobin 31.9 % Concent Red Cell Distribution Width 15.4 % Platelet Count 232 TH/MM3 Mean Platelet Volume 6.8 FL Neutrophils (%) (Auto) 83.9 % Lymphocytes (%) (Auto) 8.8 % Monocytes (%) (Auto) 5.9 % Eosinophils (%) (Auto) 0.9 % Basophils (%) (Auto) 0.5 % Neutrophils # (Auto) 7.3 TH/MM3 Lymphocytes # (Auto) 0.8 TH/MM3 Monocytes # (Auto) 0.5 TH/MM3 Eosinophils # (Auto) 0.1 TH/MM3 Basophils # (Auto) 0.0 TH/MM3 CBC Comment DIFF FINAL Differential Comment Sodium Level 139 MEQ/L Potassium Level 4.0 MEQ/L Chloride Level 105 MEQ/L Carbon Dioxide Level 26.5 MEQ/L Anion Gap 8 MEQ/L Blood Urea Nitrogen 12 MG/DL Creatinine 1.10 MG/DL Estimat Glomerular Filtration 65 ML/MIN Rate Random Glucose 142 MG/DL Calcium Level 9.0 MG/DL Aspartate Amino Transf 19 U/L (AST/SGOT) Alanine Aminotransferase 25 U/L (ALT/SGPT) Albumin 3.8 GM/DL Lipase 190 U/L Last Impressions Abdomen/Pelvis CT 09/28/16 0630 Signed Impressions: Service Date/Time: Wednesday, September 28, 2016 07:35 - CONCLUSION: Abnormal small bowel, similar to what was seen seen on . Partial small bowel obstruction would be consideration. The etiology is not readily apparent. Quentin Mobley MD FACR Differential Diagnosis Differential diagnosis includes small bowel obstruction, partial small bowel obstruction, ileus, volvulus, pancreatitis, IBD, IBS. Narrative Course The patient was initially evaluated by the previous physician, Dr. Corbett. Please refer to the initial history, physical, diagnostic evaluation, and treatment modality plan. The patient was signed out at [address] of the abdomen and pelvis pending as well as laboratory evaluation pending. The patient's white count is unremarkable. LFTs and lipase are within normal limits. CT the abdomen and pelvis reveals a minimally dilated small bowel loops with possible transition point in the terminal ileum and trace free fluid , partial small bowel obstruction is a consideration. The CT is similar to the small bowel obstruction CT the patient had in July 2016. The patient states he has had considerable burping since last night, last bowel movement was minimal, last night at midnight. He has not passed any flatus since last night. The only previous abdominal surgeries a left inguinal hernia repair 15 years ago, he cannot recall the name of the surgeon who performed the repair. The patient' s primary physician is Dr. Johnson. I discussed the patient with the on-call general surgeon, Dr. Schaefer, who recommends I discussed the patient with the on-call surgeon for Dr. Stark. Therefore, the on-call surgeon for Dr. Stark was paged at 8:24 AM. I discussed the patient with Dr. Stark who states he will see the patient at [facility], recommends admission to the medical service. [facility] [employer], after discussion with Dr. Willis, it was agreed the patient would be admitted to the medical service. Physician Communication Physician Communication I discussed the patient with Dr. Willis who agrees with admission. Diagnosis Primary Impression: Partial small bowel obstruction Admitting Information Admitting Physician Requests: Admit Condition: Stable Emre Kirk MD Sep 28, 2016 07:04
[2016-09-28] MEDS ORDERED: IOHEXOL 350 MG/ML 10 ML VIAL (for RAD DIAG) IV ONE (07:57)
--- NOTE | 2016-09-28 08:04 | RADRPT ---
EXAM DATE/TIME: 09/28/2016 07:35 [facility] COMPARISON: CT ABDOMEN & PELVIS W/O CONTRAST, July 30, 2016, 4:55. CT ABDOMEN & PELVIS W CONTRAST, July 30, 2016, 17:22. INDICATIONS : Abdominal pain since last night. History of strangulated bowel obstruction. IV CONTRAST: 96 cc Omnipaque 350 (iohexol) IV ORAL CONTRAST: Prescribed oral contrast ingested. RADIATION DOSE: 16.08 CTDIvol (mGy) MEDICAL HISTORY : Carcinoma, prostate. Renal calculi. SURGICAL HISTORY : Hemorrhoidectomy. Inguinal hernia repair. ENCOUNTER: Initial ACUITY: 1 day PAIN SCALE: 9/10 LOCATION: middle toward left abdomen. TECHNIQUE: Volumetric scanning of the abdomen and pelvis was performed. Using automated exposure control and ad justment of the mA and/or kV according to patient size, radiation dose was kept as low as reasonably achievable to obtain optimal diagnostic quality images. DICOM format image data is available electro nically for review and comparison. FINDINGS: The lung base is are clear There is moderate gastric distention The liver, spleen, pancreas and adrenals are unremarkable Scattered gas-filled minimally dilated loops of small bowel are present, largest diameter in the mid to distal small bowel. There is trace free fluid evident. There is minimal transition in the distal ileum. The terminal ileum is decompressed. Mild inflammatory changes are seen in the right lower q uadrant. There is symmetrical renal function Pelvic contents are unremarkable Review of bone windows reveals only degenerative changes. CONCLUSION: Abnormal small bowel, similar to what was seen seen on . Partial small bowel obstruction wou ld be consideration. The etiology is not readily apparent. Quentin Mobley MD FACR on September 28, 2016 at 7:58 Board Certified Radiologist. This report was verified electronically.
[2016-09-28] MEDS ORDERED: ONDANSETRON HCL 4 MG/2 ML VIAL IVP PRN (09:30)
[2016-09-28] MEDS: SODIUM CHLOR 0.9% 1000 ML INJ 1,000 ML IV SCH ×2 (09:38→20:08)
--- NOTE | 2016-09-28 12:58 | HHI.HP ---
[facility] Quentin Johnson DO Admission Diagnosis partial small bowel obstruction Diagnoses: Chief Complaint: abd pain Travel History International Travel<30 Days: No Contact w/Intl Traveler <30 Da: No Traveled to Known Affected Are: No History of Present Illness patient is an 75 year old male with 10/10 abdominal heaviness and pain in the left side for 1 day. No fever or chills. Previous episode in july was very similar and resolved spontaneously. He was scheduled for endoscopy 09/30 in follow up from prior episode. He has been pain free after IV morphine. His NGT has put out 900 clear liquid and he has thrown up about 500 ml non bloody emesis. he is admitted for further evaluation Review of Systems Constitutional: DENIES: Diaphoretic episodes, Fatigue, Fever, Weight gain, Weight loss, Chills, Dizziness, Change in appetite, Night Sweats Endocrine: DENIES: Heat/cold intolerance, Polydipsia, Polyuria, Polyphagia Eyes: DENIES: Blurred vision, Diplopia, Eye inflammation, Eye pain, Vision loss , Photosensitivity, Double Vision Ears, nose, mouth, throat: DENIES: Tinnitus, Hearing loss, Vertigo, Nasal discharge, Oral lesions, Throat pain, Hoarseness, Ear Pain, Running Nose, Epistaxis, Sinus Pain, Toothache, Odynophagia Respiratory: DENIES: Apneas, Cough, Snoring, Wheezing, Hemoptysis, Sputum production, Shortness of breath Cardiovascular: DENIES: Chest pain, Palpitations, Syncope, Dyspnea on Exertion , PND, Lower Extremity Edema, Orthopnea, Claudication Gastrointestinal: COMPLAINS OF: Abdominal pain, Constipation, Nausea, Vomiting , Anorexia Genitourinary: DENIES: Sexual dysfunction, Urinary frequency, Urinary incontinence, Urgency, Hematuria, Dysuria, Nocturia, Penile Discharge, Testicular Pain, Testicular Swelling Musculoskeletal: DENIES: Joint pain, Muscle aches, Stiffness, Joint Swelling, Back pain, Neck pain Integumentary: DENIES: Abnormal pigmentation, Nail changes, Pruritus, Rash Hematologic/lymphatic: DENIES: Bruising, Lymphadenopathy Immunologic/allergic: DENIES: Eczema, Urticaria Neurologic: DENIES: Abnormal gait, Headache, Localized weakness, Paresthesias, Seizures, Speech Problems, Tremor, Poor Balance Psychiatric: DENIES: Anxiety, Confusion, Mood changes, Depression, Hallucinations, Agitation, Suicidal Ideation, Homicidal Ideation, Delusions Except as stated in HPI: all other systems reviewed are Neg Past Family Social History Past Medical History Small bowel obstruction 2017 Prostate cancer Arthritis Past Surgical History hernia repair bilat knee arthroscopy Reported Medications reviewed in the EMR nothing new Allergies: Coded Allergies: No Known Allergies (Verified , 09/28/16) Active Ordered Medications reviewed in the EMR Family History HTN Social History oc etoh no tobacco lives with spouse Physical Exam Vital Signs Vital Signs Date Time Temp Pulse Resp B/P Pulse Ox O2 Delivery O2 Flow Rate FiO2 09/28/16 12:42 70 18 113/67 99 Room Air 09/28/16 10:32 73 18 132/71 98 Room Air 09/28/16 10:30 18 09/28/16 09:03 98.0 90 18 166/87 97 Room Air 09/28/16 09:02 18 09/28/16 06:58 76 18 144/84 96 Room Air 09/28/16 06:57 18 09/28/16 06:47 97 Room Air 09/28/16 06:47 97 Room Air 09/28/16 06:25 18 09/28/16 06:20 97.8 80 18 174/96 96 Physical Exam GENERAL: This is a well-nourished, well-developed patient, in no apparent distress. SKIN: No rashes, ecchymoses or lesions. Cool and dry. HEAD: Atraumatic. Normocephalic. No temporal or scalp tenderness. EYES: Pupils equal round and reactive. Extraocular motions intact. No scleral icterus. No injection or drainage. ENT: Nose without bleeding, purulent drainage or septal hematoma. Throat without erythema, tonsillar hypertrophy or exudate. Uvula midline. Airway patent. NECK: Trachea midline. No JVD or lymphadenopathy. Supple, nontender, no meningeal signs. CARDIOVASCULAR: sinus tachycardia without murmurs, gallops, or rubs. RESPIRATORY: Clear to auscultation. Breath sounds equal bilaterally. No wheezes , rales, or rhonchi. GASTROINTESTINAL: Abdomen soft, non-tender, moderately distended. No hepato- splenomegaly, or palpable masses. No guarding. MUSCULOSKELETAL: Extremities without clubbing, cyanosis, or edema. No joint tenderness, effusion, or edema noted. No calf tenderness. Negative Homans sign bilaterally. NEUROLOGICAL: Awake and alert. Cranial nerves II through XII intact. Motor and sensory grossly within normal limits. Five out of 5 muscle strength in all muscle groups. Normal speech. Laboratory Laboratory Tests Test 09/28/16 09/28/16 06:20 06:30 Urine Collection Type CLEAN CATCH Urine Color YELLOW Urine Turbidity CLEAR Urine pH 5.5 Urine Specific [place] 1.022 Urine Protein TRACE Urine Glucose (UA) NEG Urine Ketones NEG Urine Occult Blood NEG Urine Nitrite NEG Urine Bilirubin NEG Urine Leukocyte Esterase NEG Urine RBC 4-9 Urine WBC 0-2 Urine Squamous Epithelial 0-5 Cells Microscopic Urinalysis Comment CULT NOT INDICATED Urine Collection Time 06:20 White Blood Count 8.7 Red Blood Count 5.16 Hemoglobin 14.8 Hematocrit 46.3 Mean Corpuscular Volume 89.7 Mean Corpuscular Hemoglobin 28.7 Mean Corpuscular Hemoglobin 31.9 Concent Red Cell Distribution Width 15.4 Platelet Count 232 Mean Platelet Volume 6.8 Neutrophils (%) (Auto) 83.9 Lymphocytes (%) (Auto) 8.8 Monocytes (%) (Auto) 5.9 Eosinophils (%) (Auto) 0.9 Basophils (%) (Auto) 0.5 Neutrophils # (Auto) 7.3 Lymphocytes # (Auto) 0.8 Monocytes # (Auto) 0.5 Eosinophils # (Auto) 0.1 Basophils # (Auto) 0.0 CBC Comment DIFF FINAL Differential Comment Sodium Level 139 Potassium Level 4.0 Chloride Level 105 Carbon Dioxide Level 26.5 Anion Gap 8 Blood Urea Nitrogen 12 Creatinine 1.10 Estimat Glomerular Filtration 65 Rate Random Glucose 142 Calcium Level 9.0 Total Bilirubin 0.8 Aspartate Amino Transf 19 (AST/SGOT) Alanine Aminotransferase 25 (ALT/SGPT) Alkaline Phosphatase 59 Total Protein 7.4 Albumin 3.8 Lipase 190 Result Diagram: 09/28/1662909/28/16629 Imaging Last Impressions Abdomen/Pelvis CT 09/28/16629 Signed Impressions: Service Date/Time: Wednesday, September 28, 2016 07:35 - CONCLUSION: Abnormal small bowel, similar to what was seen seen on . Partial small bowel obstruction would be consideration. The etiology is not readily apparent. Quentin Mobley MD FACR Assessment and Plan Problem List: (1) Small bowel obstruction ICD Code: K56.69 Status: Acute Plan: Continue nothing by mouth status, IV fluids, pain medication KUB in a.m. General surgery consult pending Physician Certification 2 Midnight Certification Type: Admission for Inpatient Services Order for Inpatient Services The services are ordered in accordance with Medicare regulations or non- Medicare payer requirements, as applicable. In the case of services not specified as inpatient-only, they are appropriately provided as inpatient services in accordance with the 2-midnight benchmark. Estimated LOS (days): 3 3 days is the estimated time the patient will need to remain in the hospital, assuming treatment plan goals are met and no additional complications. Post-Hospital Plan: Chio Rick MD Sep 28, 2016 12:58
[2016-09-28] MEDS ORDERED: MORPHINE SULFATE 4 MG/ML INJ IV PUSH PRN (13:00)
--- NOTE | 2016-09-28 13:53 | PD.CONS ---
HPI Service General Surgery Consult Requested By Dr. Kirk Reason for Consult [facility] Primary Care Physician Quentin Johnson, DO History of Present Illness Mr. Herrera is a 75-year-old male presenting with abdominal pain. Last night he ate a large meal and a large amount of ice cream and chocolate cake and around midnight developed severe abdominal pain associated with bloating and nausea. He stopped having flatus. He denies diarrhea. He presented to the emergency department and was noted to have abdominal distention and a CT abdomen and pelvis showed evidence of partial small bowel obstruction. The patient had a similar presentation in July [address] findings. He quickly resolved without operative intervention. He is scheduled to undergo EGD/ colonoscopy with Dr. Covarrubias on Friday. Past surgical history on the abdomen includes only left inguinal hernia repair. The patient had an NG tube placed in the emergency department with about 1 L of output and then he had about 500 cc of emesis when the NG tube became clocked. He then insisted that the NG tube be removed. Review of Systems Constitutional: DENIES: Fever, Chills Eyes: DENIES: Eye inflammation, Eye pain Respiratory: DENIES: Cough, Shortness of breath Cardiovascular: DENIES: Chest pain, Palpitations Gastrointestinal: COMPLAINS OF: Abdominal pain, Nausea, Vomiting, DENIES: Diarrhea Integumentary: DENIES: Pruritus, Rash Neurologic: DENIES: Paresthesias, Seizures Past Family Social History Past Medical History Prostate cancer Arthritis Past Surgical History Left inguinal hernia repair Hemorrhoidectomy Reported Medications Reported Meds & Active Scripts Active Reported Tlwgmvrd-Ashlsknpc-Jhns 200-5-25 Mcg-Mg-Mg Tab B Complex (B-Complex Vitamins) 1 Cap 1 Cap PO DAILY Allergies: Coded Allergies: No Known Allergies (Verified , 09/28/16) Active Ordered Medications Current Medications Medications (Trade) Dose Ordered Sig/Chantal Route Start Time Stop Time Status Last Admin Sodium Chloride 2 ml 2 ml UNSCH PRN IV FLUSH 09/28/16 06:30 09/28/16 08:55 (NS 1000 ml Inj) 1,000 ml @ 100 mls/hr Q10H IV 09/28/16 09:26 09/28/16 09:38 (Zofran Inj) 4 mg Q6H PRN IVP 09/28/16 09:30 09/28/16 10:19 (Morphine Inj) 4 mg Q3H PRN IV PUSH 09/28/16 13:00 Family History Noncontributory Social History Occasional alcohol use and no tobacco use. His is present with him. Physical Exam Vital Signs Vital Signs Date Time Temp Pulse Resp B/P Pulse Ox O2 Delivery O2 Flow Rate FiO2 09/28/16 12:42 70 18 113/67 99 Room Air 09/28/16 10:32 73 18 132/71 98 Room Air 09/28/16 10:30 18 09/28/16 09:03 98.0 90 18 166/87 97 Room Air 09/28/16 09:02 18 09/28/16 06:58 76 18 144/84 96 Room Air 09/28/16 06:57 18 09/28/16 06:47 97 Room Air 09/28/16 06:47 97 Room Air 09/28/16 06:25 18 09/28/16 06:20 97.8 80 18 174/96 96 Physical Exam GENERAL: Awake and alert. No acute distress. Cooperative. He is belching frequently. HEAD: Normocephalic. Atraumatic. EYES: Pupils equal round and reactive to light bilaterally. No scleral icterus. CHEST: Lungs clear to auscultation bilaterally with no wheezing or rhonchi. No respiratory distress. CARDIOVASCULAR: Regular rate and rhythm. ABDOMEN: Soft, nondistended. Mild tenderness in the left upper abdomen. Otherwise soft and nontender. No hernias palpated. EXTREMITIES: No cyanosis or edema. SKIN: Warm, dry, nonjaundiced. Laboratory Laboratory Tests Test 09/28/16 09/28/16 06:20 06:30 Urine Collection Type CLEAN CATCH Urine Color YELLOW Urine Turbidity CLEAR Urine pH 5.5 Urine Specific Kendall 1.022 Urine Protein TRACE Urine Glucose (UA) NEG Urine Ketones NEG Urine Occult Blood NEG Urine Nitrite NEG Urine Bilirubin NEG Urine Leukocyte Esterase NEG Urine RBC 4-9 Urine WBC 0-2 Urine Squamous Epithelial 0-5 Cells Microscopic Urinalysis Comment CULT NOT INDICATED Urine Collection Time 06:20 White Blood Count 8.7 Red Blood Count 5.16 Hemoglobin 14.8 Hematocrit 46.3 Mean Corpuscular Volume 89.7 Mean Corpuscular Hemoglobin 28.7 Mean Corpuscular Hemoglobin 31.9 Concent Red Cell Distribution Width 15.4 Platelet Count 232 Mean Platelet Volume 6.8 Neutrophils (%) (Auto) 83.9 Lymphocytes (%) (Auto) 8.8 Monocytes (%) (Auto) 5.9 Eosinophils (%) (Auto) 0.9 Basophils (%) (Auto) 0.5 Neutrophils # (Auto) 7.3 Lymphocytes # (Auto) 0.8 Monocytes # (Auto) 0.5 Eosinophils # (Auto) 0.1 Basophils # (Auto) 0.0 CBC Comment DIFF FINAL Differential Comment Sodium Level 139 Potassium Level 4.0 Chloride Level 105 Carbon Dioxide Level 26.5 Anion Gap 8 Blood Urea Nitrogen 12 Creatinine 1.10 Estimat Glomerular Filtration 65 Rate Random Glucose 142 Calcium Level 9.0 Total Bilirubin 0.8 Aspartate Amino Transf 19 (AST/SGOT) Alanine Aminotransferase 25 (ALT/SGPT) Alkaline Phosphatase 59 Total Protein 7.4 Albumin 3.8 Lipase 190 Result Diagram: 09/28/1662909/28/16629 Imaging Last Impressions Abdomen/Pelvis CT 09/28/16629 Signed Impressions: Service Date/Time: Wednesday, September 28, 2016 07:35 - CONCLUSION: Abnormal small bowel, similar to what was seen seen on . Partial small bowel obstruction would be consideration. The etiology is not readily apparent. Quentin Mobley MD FACR Assessment and Plan Assessment and Plan 75-year-old male with small bowel obstruction. He had similar episode in July of this year. I reviewed the CT images and it appears that he has inflammatory changes in the distal ileum. I did discuss the case with Dr. Saurav Mobley and he agrees that there are inflammatory changes and there is not a clear mechanical cause of transition. I recommend conservative treatment with NG tube if needed and nothing by mouth status for now. I have some concern that there is an inflammatory cause such as inflammatory bowel disease. Another possibility could be inflamed Meckel's diverticulum. For now, I will place him on Flagyl IV. Discussed Condition With Bryan Gurrola Dr., Dr., MD Sep 28, 2016 13:53
[2016-09-28] MEDS: metroNIDAZOLE 500 MG INJ 100 ML IV SCH ×2 (13:56→20:08)
[2016-09-29 00:05] VITALS: BP 98/58; PULSE 86; RESP 22; TEMP 99.4; O2SAT 97
[2016-09-29] MEDS: metroNIDAZOLE 500 MG INJ 100 ML IV SCH ×4 (02:23→19:49)
--- NOTE | 2016-09-29 05:18 | RADRPT ---
EXAM DATE/TIME: 09/29/2016 05:00 [facility] COMPARISON: No previous studies available for comparison. INDICATIONS : Obstruction. MEDICAL HISTORY : Carcinoma, prostatic. Renal calculi. SURGICAL HISTORY : Hemorrhoidectomy. Inguinal hernia repair. ENCOUNTER: Subsequent ACUITY: 2 days PAIN SCORE: 5/10 LOCATION: Left abdomen FINDINGS: Supine view of the abdomen was performed. The abdominal bowel gas pattern is normal. No abnormal ma sses, or organomegaly is seen. 4 mm calcific overlies upper pole right kidney. The osseous structur es are unremarkable. Prostate seed placement CONCLUSION: Normal examination except for possible right renal calculus. Jah Dawn MD on September 29, 2016 at 5:15 Board Certified Radiologist. This report was verified electronically.
[2016-09-29] MEDS: SODIUM CHLOR 0.9% 1000 ML INJ 1,000 ML IV SCH ×2 (05:36→15:26)
[2016-09-29 08:00] VITALS: BP 115/72; PULSE 78; RESP 17; TEMP 97.3; O2SAT 98
--- NOTE | 2016-09-29 08:49 | HHI.PR ---
Subjective Remarks Seen today in follow-up for partial small bowel obstruction. Abdomen less distended and less painful. Patient is passing gas although he has not had a bowel movement. No events overnight Objective Vitals Vital Signs Date Time Temp Pulse Resp B/P Pulse Ox O2 Delivery O2 Flow Rate FiO2 09/29/16 00:05 99.4 86 22 98/58 97 09/28/16 20:14 97.9 94 20 109/70 94 09/28/16 16:00 99.3 101 19 137/78 95 09/28/16 14:39 72 18 131/74 98 09/28/16 12:42 70 18 113/67 99 Room Air 09/28/16 10:32 73 18 132/71 98 Room Air 09/28/16 10:30 18 09/28/16 09:03 98.0 90 18 166/87 97 Room Air 09/28/16 09:02 18 I/O 09/28/16 09/28/16 09/28/16 09/29/16 09/29/16 09/29/16 07:00 15:00 23:00 07:00 15:00 23:00 Intake Total 1000 ml Output Total 1400 ml Balance -400 ml Intake IV Total 1000 ml Output Gastric Drainage Total 900 ml Emesis 500 ml # Voids 1 1 Result Diagram: 09/28/1662909/28/16629 Imaging Last Impressions Abdomen X-Ray 09/29/16599 Signed Impressions: Service Date/Time: Thursday, September 29, 2016 05:00 - CONCLUSION: Normal examination except for possible right renal calculus. Jah Dawn MD Abdomen/Pelvis CT 09/28/16629 Signed Impressions: Service Date/Time: Wednesday, September 28, 2016 07:35 - CONCLUSION: Abnormal small bowel, similar to what was seen seen on . Partial small bowel obstruction would be consideration. The etiology is not readily apparent. Quentin Mobley MD FACR Objective Remarks GENERAL: This is a well-nourished, well-developed patient, in no apparent distress. CARDIOVASCULAR: Regular rate and rhythm without murmurs, gallops, or rubs. RESPIRATORY: Clear to auscultation. Breath sounds equal bilaterally. No wheezes , rales, or rhonchi. GASTROINTESTINAL: Abdomen soft, minimally tender, less distended. Hypoactive bowel sounds MUSCULOSKELETAL: Extremities without clubbing, cyanosis, or edema. NEURO: Alert & Oriented x4 to person, place, time, situation. Moves all ext x4 A/P Problem List: (1) Small bowel obstruction ICD Code: K56.69 Status: Acute Plan: appears improved KUB improved and correlates with patient report Continue nothing by mouth status, IV fluids, pain medication follow for BM General surgery consult appreciated Chio Willis MD Sep 29, 2016 08:49
--- NOTE | 2016-09-29 11:43 | HHI.PR ---
Subjective Subjective Notes No abdominal pain, nausea or vomiting. He is having flatus but no BM. Objective Vitals/I&O Vital Signs Date Time Temp Pulse Resp B/P Pulse Ox O2 Delivery O2 Flow Rate FiO2 09/29/16 08:00 97.3 78 17 115/72 98 09/28/16 12:42 Room Air Radiology Last Impressions Abdomen/Pelvis CT 09/28/16 0630 Signed Impressions: Service Date/Time: Wednesday, September 28, 2016 07:35 - CONCLUSION: Abnormal small bowel, similar to what was seen seen on . Partial small bowel obstruction would be consideration. The etiology is not readily apparent. Quentin Mobley MD FACR Narrative Exam NAD Abd: soft, nontender A/P Assessment and Plan 76 yo M partial SBO, resolving, possibly associated with inflammation or infection rather than mechanical obstruction. KUB this am unremarkable. Start fulls. Likely ok for dc home tomorrow on flagyl PO. Needs fu with GI for further workup as outpatient. Bryan Stark MD Sep 29, 2016 11:43
[2016-09-29 12:00] VITALS: BP 133/82; PULSE 79; RESP 19; TEMP 97.4; O2SAT 96
[2016-09-29 16:00] VITALS: BP 121/73; PULSE 69; RESP 19; TEMP 97.6; O2SAT 97
[2016-09-29] MEDS ORDERED: DOCUSATE SODIUM 50 MG/SENNA 8.6 MG TAB PO ONE (17:00)
[2016-09-29 21:08] VITALS: BP 137/81; PULSE 72; RESP 18; TEMP 97.9; O2SAT 96
[2016-09-29 22:54] VITALS: BP 125/75; PULSE 64; RESP 20; TEMP 96.9; O2SAT 95
[2016-09-30] MEDS: SODIUM CHLOR 0.9% 1000 ML INJ 1,000 ML IV SCH (00:15)
[2016-09-30] MEDS: metroNIDAZOLE 500 MG INJ 100 ML IV SCH ×3 (02:15→15:43)
[2016-09-30 07:51] VITALS: BP 122/83; PULSE 80; RESP 18; TEMP 97.3; O2SAT 96
--- NOTE | 2016-09-30 10:09 | HHI.PR ---
Subjective Remarks Patient seen and evaluated today in follow-up for partial small bowel obstruction which appears to be resolving. Small bowel movement overnight. Patient reports decreased pain and lots of flatus. Objective Vitals Vital Signs Date Time Temp Pulse Resp B/P Pulse Ox O2 Delivery O2 Flow Rate FiO2 09/30/16 07:51 97.3 80 18 122/83 96 09/29/16 22:54 96.9 64 20 125/75 95 09/29/16 21:08 97.9 72 18 137/81 96 09/29/16 16:00 97.6 69 19 121/73 97 09/29/16 12:00 97.4 79 19 133/82 96 I/O 09/29/16 09/29/16 09/29/16 09/30/16 09/30/16 09/30/16 07:00 15:00 23:00 07:00 15:00 23:00 Intake Total 960 ml 2869 ml 842 ml Balance 960 ml 2869 ml 842 ml Intake Oral 960 ml IV Total 2869 ml 842 ml # Voids 1 4 3 1 # Bowel Movements 0 1 Result Diagram: 09/28/16 0630 09/28/16 0630 Objective Remarks GENERAL: This is a well-nourished, well-developed patient, in no apparent distress. CARDIOVASCULAR: Regular rate and rhythm without murmurs, gallops, or rubs. RESPIRATORY: Clear to auscultation. Breath sounds equal bilaterally. No wheezes , rales, or rhonchi. GASTROINTESTINAL: Abdomen soft, minimally tender, less distended. Hypoactive bowel sounds MUSCULOSKELETAL: Extremities without clubbing, cyanosis, or edema. NEURO: Alert & Oriented x4 to person, place, time, situation. Moves all ext x4 A/P Problem List: (1) Small bowel obstruction ICD Code: K56.69 Status: Acute Plan: appears improved, full liquids Bowel regimen Continue ambulation Discharge Planning Likely discharge in Chio Diaz MD Sep 30, 2016 10:09
[2016-09-30] MEDS ORDERED: BISACODYL EC 5 MG TABEC PO ONE (10:15)
[2016-09-30 11:47] LABS: POTASSIUM 3.6 MEQ/L (3.5-5.1)
[2016-09-30 11:50] LABS: BICARBONATE 25.8 MEQ/L (21.0-32.0)
[2016-09-30 12:00] VITALS: BP 134/81; PULSE 84; RESP 18; TEMP 97.4; O2SAT 95
[2016-09-30] MEDS ORDERED: DULC100C PO (15:03)
[2016-09-30] MEDS ORDERED: METR-1 PO (15:03)
--- NOTE | 2016-09-30 15:03 | HHI.DCPOC ---
Discharge Care Plan Diagnosis: (1) Partial small bowel obstruction Goals to Promote Your Health * To prevent worsening of your condition and complications * To maintain your health at the optimal level Directions to Meet Your Goals Take your medications as prescribed Follow your dietary instruction Follow activity as directed Keep your appointments as scheduled Take your immunizations and boosters as scheduled If your symptoms worsen call your PCP, if no PCP go to Urgent Care Center or Emergency Room Smoking is Dangerous to Your Health. Avoid second hand smoke Call the 24-hour hour crisis hotline for domestic abuse at Chio Willis MD Sep 30, 2016 15:03
--- NOTE | 2016-09-30 15:07 | HHI.PR ---
Subjective Subjective Notes He continues to feel better. Tolerating fulls. Had small bowel movt. No N/V. Objective Vitals/I&O Vital Signs Date Time Temp Pulse Resp B/P Pulse Ox O2 Delivery O2 Flow Rate FiO2 09/30/16 12:00 97.4 84 18 134/81 95 09/28/16 12:42 Room Air Labs Laboratory Tests Test 09/30/16 10:50 Sodium Level 145 Potassium Level 3.6 Chloride Level 111 Carbon Dioxide Level 25.8 Anion Gap 8 Blood Urea Nitrogen 7 Creatinine 0.94 Estimat Glomerular Filtration 78 Rate Random Glucose 128 Calcium Level 8.6 Magnesium Level 2.0 Thyroid Stimulating Hormone 1.160 3rd Gen Radiology Last Impressions Abdomen/Pelvis CT 09/28/16 0630 Signed Impressions: Service Date/Time: Friday, September 28, 2016 07:35 - CONCLUSION: Abnormal small bowel, similar to what was seen seen on . Partial small bowel obstruction would be consideration. The etiology is not readily apparent. Quentin Mobley MD FACR Narrative Exam NAD Abd: soft, nontender A/P Assessment and Plan 76 yo M partial SBO, resolving, possibly associated with inflammation or infection rather than mechanical obstruction Ok for d/c home. Recommend full liquids/soft diet and tx with flagyl PO. Needs fu with GI for further workup as outpatient; d/w Dr. Quinones yesterday and he will f/u with Dr. Covarrubias for likely colonoscopy. LincolnBryan MD Sep 30, 2016 15:07
--- NOTE | 2016-09-30 15:07 | HHI.DS ---
Discharge Summary Admission Date Sep 28, 2016 at 09:04 Discharge Date: Sep 30, 2016 Admitting Diagnosis partial small bowel obstruction (1) Small bowel obstruction ICD Code: K56.69 Procedures none Brief History - From Admission patient is an 75 year old male with 10/10 abdominal heaviness and pain in the left side for 1 day. No fever or chills. Previous episode in july was very similar and resolved spontaneously. He was scheduled for endoscopy 09/30 in follow up from prior episode. He has been pain free after IV morphine. His NGT has put out 900 clear liquid and he has thrown up about 500 ml non bloody emesis. he is admitted for further evaluation CBC/BMP: 09/28/16 0630 09/30/16 1050 Significant Findings Laboratory Tests Test 09/28/16 09/28/16 09/30/16 06:20 06:30 10:50 Urine RBC 4-9 /hpf (0-3) Mean Corpuscular Hemoglobin 31.9 % Concent (32.0-36.0) Mean Platelet Volume 6.8 FL (7.0-11.0) Neutrophils (%) (Auto) 83.9 % (16.0-70.0) Lymphocytes (%) (Auto) 8.8 % (9.0-44.0) Lymphocytes # (Auto) 0.8 TH/MM3 (1.0-4.8) Estimat Glomerular Filtration 65 ML/MIN (>89) 78 ML/MIN (>89) Rate Random Glucose 142 MG/DL 128 MG/DL (74-106) (74-106) Chloride Level 111 MEQ/L (98-107) PE at Discharge GENERAL: This is a well-nourished, well-developed patient, in no apparent distress. CARDIOVASCULAR: Regular rate and rhythm without murmurs, gallops, or rubs. RESPIRATORY: Clear to auscultation. Breath sounds equal bilaterally. No wheezes , rales, or rhonchi. GASTROINTESTINAL: Abdomen soft, minimally tender, less distended. Hypoactive bowel sounds MUSCULOSKELETAL: Extremities without clubbing, cyanosis, or edema. NEURO: Alert & Oriented x4 to person, place, time, situation. Moves all ext x4 Pt update on day of discharge Please see daily progress note. DC plans discussed with patient,, Gen SUrg Dr. Stark, and floor framer Hospital Course Recent seen and evaluated and treated for abdominal pain likely related to partial small bowel resection which resolve obstruction which resolved with bowel rest and medical management. Patient had bowel movements time of discharge. His pain and distention resolved. Patient is seen in consultation by the general surgery team. Recommended outpatient endoscopy for which patient has previously been scheduled. Patient also to continue on Flagyl. Pt Condition on Discharge: Good Discharge Disposition: Discharge Home Discharge Time: <= 30 minutes Discharge Instructions DIET: Follow Instructions for: Full Liquid Diet Activities you can perform: Regular-No Restrictions Follow up Referrals: Gastroenterology with Shelly Covarrubias MD New Medications: Docusate Sodium (Dulcolax Stool Softener) 100 Mg Cap 100 MG PO BID Prevent Constipation #60 Ref 0 CAP Metronidazole (Flagyl) 500 Mg Tab 500 MG PO TID Infection #30 Ref 0 TAB Continued Medications: B-Complex Vitamins (B Complex) 1 Cap 1 CAP PO DAILY Nutritional Supplement #30 Ref 0 CAP Rvdoeaph-Cjjirpylq-Ytrr (Xdrlkwva-Lnwyxprdq-Cdvv) 200-5-25 Mcg-Mg-Mg Tab Chio Willis MD Sep 30, 2016 15:07
== END 2016-09-30 17:50 | disposition home or self-care (01) | DRG 390 ==
LOC: PHED 06:13 → PHEDA 09:04 → PHEDH 13:04 → PH3A 16:16
PROVIDERS: ADMIT Hospitalist; ATTEND Hospitalist
DX: K56.69 Other intestinal obstruction (principal); M19.90 Unspecified osteoarthritis, unspecified site; Z85.46 Personal history of malignant neoplasm of prostate
CPT/HCPCS: 74000; 74177; 80048; 80053; 81001; 83690; 83735; 84443; 85025; 96361; 96374; 96375; 96376; J2270; J2405; J7030; Q9963; Q9967

== ENCOUNTER 2016-10-08 20:49 | Emergency (ER) | payer MEDICARE, OTHER ==
[~2016-10-08 20:49] MED LIST changes: +DULC100C PO; +METR-1 PO
[2016-10-08 20:57] VITALS: BP 204/106; PULSE 102; RESP 20; TEMP 97.9; O2SAT 95
--- NOTE | 2016-10-08 22:21 | PD ---
HPI Chief Complaint: Abdominal Pain Time Seen by Provider: 22:19 Travel History International Travel<30 days: No Contact w/Intl Traveler<30days: No Traveled to known affect area: No History of Present Illness HPI The patient is a 76-year-old male that presents with generalized abdominal pain and distention after he had an upper and lower GI series today. He states he did not swallow any dye for the studies but they did introduce air into the abdomen. He states he has a history of chronic lower bowel pain. They did this under general anesthesia, he states that they "knock me out" for the procedure. He has been passing some gas. He does have some nausea and vomiting. He does have a history of small bowel/partial small bowel obstruction. PFSH Past Medical History Asthma: No Cancer: Yes (hx of prostate) COPD: No Diminished Hearing: No Endocrine: No Inguinal Hernia: Yes (Left) Kidney Stones: Yes Respiratory: No Radiation Therapy: Yes (hx of) Tetanus Vaccination: < 5 Years Influenza Vaccination: Yes Dilation and Curettage (D&C): Yes (right and left knees) Past Surgical History Abdominal Surgery: Yes (inguinal hernia) Joint Replacement: No (bilat knee d & c) Other Surgery: Yes (Maximo knee arthroscopy, left inguinal hernia, Hemorrhoidectomy) Social History Alcohol Use: Yes (WINE OCC) Tobacco Use: No (quit 2 cigar daily 10 years ago) Substance Use: No Allergies-Medications (Allergen,Severity, Reaction): Coded Allergies: No Known Allergies (Verified , 10/08/16) Reported Meds & Prescriptions Reported Meds & Active Scripts Active Reported Ovndopop-Ajcngewgd-Zqaw 200-5-25 Mcg-Mg-Mg Tab B Complex (B-Complex Vitamins) 1 Cap 1 Cap PO DAILY Review of Systems Except as stated in HPI: all other systems reviewed are Neg Physical Exam Narrative GENERAL: The patient is alert, oriented 3 in moderate apparent distress with his abdominal distention and generalized abdominal pain. His vital signs show blood pressure 204/106 with heart rate of 102 but otherwise normal. SKIN: Focused skin assessment warm/dry. HEAD: Atraumatic. Normocephalic. EYES: Pupils equal and round. No scleral icterus. No injection or drainage. ENT: No nasal bleeding or discharge. Mucous membranes pink and moist. NECK: Trachea midline. No JVD. CARDIOVASCULAR: Regular rate and rhythm. No murmur appreciated. RESPIRATORY: No accessory muscle use. Clear to auscultation. Breath sounds equal bilaterally. GASTROINTESTINAL: Abdomen soft, non-tender, generally distended. Hepatic and splenic margins not palpable. No guarding or rebound is present. MUSCULOSKELETAL: No obvious deformities. No clubbing. No cyanosis. No edema. NEUROLOGICAL: Awake and alert. No obvious cranial nerve deficits. Motor grossly within normal limits. Normal speech. PSYCHIATRIC: Appropriate mood and affect; insight and judgment normal. RECTAL EXAM: No masses or tenderness, there is no impaction present and no stool is present in the rectum. Data Data Last Documented VS Vital Signs Date Time Temp Pulse Resp B/P Pulse Ox O2 Delivery O2 Flow Rate FiO2 10/08/16 20:57 97.9 102 20 204/106 95 Orders Polyethylene Glycol (Miralax) (10/08/16 22:30) Abdomen, Flat & Upright (10/08/16 ) [facility] Medical Decision Making Medical Screen Exam Complete: Yes Emergency Medical Condition: Yes Medical Record Reviewed: Yes Interpretation(s) The flat and upright abdomen shows large gas amounts in the small and large bowel. Differential Diagnosis Gas from procedure done earlier today, small bowel obstruction, free airhighly likely Narrative Course It is now 1118 and the patient is passing large volumes of gas. He believes she can handle this at home. The flat and upright abdomen did not indicate any obstruction, just large amounts of gas in the small and large bowel. Diagnosis Primary Impression: Intestinal gas excretion Additional Instructions: As we discussed, passing gas as best you can. It is sometimes useful to take a laxative and you should drink clear liquids For the next 24 hours. Do not eat any gas producing foods such as vegetables or beans. Follow-up with the people that did this study. Disposition: 01 DISCHARGE HOME Condition: Stable Terry Corbett MD Oct 08, 2016 22:21
[2016-10-08] MEDS ORDERED: POLYETHYLENE GLYCOL 17 GM PKG PO ONE (22:30)
--- NOTE | 2016-10-08 23:06 | RADRPT ---
EXAM DATE/TIME: 10/08/2016 22:43 [facility] COMPARISON: ABDOMEN KUB ONLY, September 29, 2016, 5:00. INDICATIONS : Abdominal pain. Patient states he had a colonoscopy and an endoscopy today and has been in pain since . MEDICAL HISTORY : Carcinoma, prostatic. Renal calculi. SURGICAL HISTORY : Hemorrhoidectomy. Inguinal hernia repair. ENCOUNTER: Initial ACUITY: 1 day PAIN SCORE: 10/10 LOCATION: Bilateral abdomen. FINDINGS: There is diffuse gaseous distention of small and large bowel identified. Clips overlie the pelvis at the level of the prostate. No obvious free air. CONCLUSION: Diffuse bowel distention. Neil Farias MD on October 08, 2016 at 23:04 Board Certified Radiologist. This report was verified electronically.
[2016-10-08 23:41] VITALS: BP 155/99
== END 2016-10-08 23:57 | disposition home or self-care (01) ==
LOC: PHED 20:49
DX: R14.0 Abdominal distension (gaseous) (principal); R11.2 Nausea with vomiting, unspecified; Z87.891 Personal history of nicotine dependence
CPT/HCPCS: 74020; 99283